=== PATIENT | male | born 1995 | race Caucasian/White ===

== ENCOUNTER → 2017-01-18 | Outpatient (CLI) | payer OTHER ==
--- NOTE | 2017-01-18 13:26 | Diagnostic Imaging Report ---
TECHNIQUE: Multiplanar, multisequence non contrast-enhanced MRI of the left lower extremity was accomplished. INDICATION: Slipped in shower. This occurred three to four weeks ago. Knee is buckling with posterior knee pain and swelling. EXAMINATION: MRI of the knee without contrast 01/18/2017. FINDINGS: The extensor mechanism is intact. The ACL and PCL are also intact. MCL is unremarkable. The lateral collateral ligamentous convex is within normal limits. 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 Within the lateral compartment, there is a large focus of hypointensity within the anterior aspect of the joint. This is most consistent with a flipped meniscus/bucket-handle tear of the posterior horn of the lateral meniscus given diminutive appearance to the residual posterior lateral meniscus. The cartilage within the lateral joint compartment demonstrates diffuse mild irregularity. Cartilage in the medial compartment is preserved. The patellofemoral joint demonstrates a focus of cartilaginous irregularity immediately adjacent to the apex in the lateral patellar cartilage; however, no large defects appreciated. There is a moderate-sized joint effusion. There is a small Montelongo's cyst. Cystic changes posteriorly adjacent to the Montelongo's cyst may represent a small ganglion as well as perhaps reactive edema from the recent trauma. Hypointensities in the anterior aspect of the joint space could represent a tiny loose body versus a focus of synovial proliferation. IMPRESSION: 1. Findings consistent with a bucket-handle tear of the lateral meniscus as described. Medial meniscus intact. 2. Joint effusion with other incidental changes within the joint space. 3. Ligaments and tendons intact. Dictated by: Dictated on workstation # [id number]
== END ==
LOC: RAD 08:05
PROVIDERS: ATTEND Orthopaedic Surgery
DX: S83.252A Bucket-handle tear of lateral meniscus, current injury, left knee, initial encounter (principal); M25.462 Effusion, left knee; X58.XXXA Exposure to other specified factors, initial encounter; Y99.8 Other external cause status
CPT/HCPCS: 73721